=== PATIENT | male | born 1995 | race Caucasian/White ===

== ENCOUNTER 2017-05-26 07:08 | Emergency (ER) | payer BC, OTHER ==
[~2017-05-26] VITALS: Ht 185.4 cm; Wt 78.5 kg
[2017-05-26 07:10] VITALS: BP 136/72
== END 2017-05-26 07:44 | disposition home or self-care (01) ==
LOC: ER 07:10
DX: M70.22 Olecranon bursitis, left elbow (principal); Z88.6 Allergy status to analgesic agent
CPT/HCPCS: 99283; A4606; Z7610